=== PATIENT | male | born 1970 | race American Indian/Alaskan Native ===

== ENCOUNTER 2017-05-06 12:07 | Observation (INO) | payer MEDICAID, OTHER ==
[2017-05-06 12:07] VITALS: BMI 24.0
[2017-05-06] MEDS ORDERED: Sodium Chloride 0.9% 1,000 ML IV STA ×2 (12:23→15:50)
[2017-05-06] MEDS ORDERED: Morphine 4 mg/ml ISec IVP STA (12:25)
--- NOTE | 2017-05-06 12:31 | ED PDOC ---
Arrival/HPI - General Chief Complaint: Abdominal Pain Time Seen by Provider: 05/06/17 12:07 Historian: Patient - History of Present Illness Narrative History of Present Illness (Text): 05/06/17 12:31 A 46 year old male, whose past medical history includes gastroenteritis and colitis, presents to the emergency department complaining of abdominal pain that began this morning. Patient reports nausea, vomiting and diarrhea but denies any other complaints at this time. No history of abdominal surgeries. Denies any sick contacts. Time/Duration: 4-6 hours Symptom Onset: Sudden Symptom Course: Unchanged Activities at Onset: Rest Context: Home Past Medical History - Provider Review Nursing Documentation Reviewed: Yes - Infectious Disease Hx of Infectious Diseases: None - Past Medical History Past Medical History: No Previous - Cardiac Hx Cardiac Disorders: No - Pulmonary Hx Respiratory Disorders: No - Neurological Hx Neurological Disorder: No - HEENT Hx HEENT Disorder: No - Renal Hx Renal Disorder: No - Endocrine/Metabolic Hx Endocrine Disorders: No - Hematological/Oncological Hx Blood Disorders: No - Integumentary Hx Dermatological Disorder: No - Musculoskeletal/Rheumatological Hx Musculoskeletal Disorders: No - Gastrointestinal Hx Gastrointestinal Disorders: Yes Hx Colitis: Yes Other/Comment: chronic abd pains - Genitourinary/Gynecological Hx Genitourinary Disorders: No - Psychiatric Hx Psychophysiologic Disorder: No Hx Substance Use: Yes - Past Surgical History Past Surgical History: No Previous - Anesthesia Hx Anesthesia: No Hx Anesthesia Reactions: No Hx Malignant Hyperthermia: No - Suicidal Assessment Feels Threatened In Home Enviroment: No Family/Social History - Physician Review Nursing Documentation Reviewed: Yes Family/Social History: No Known Family HX Smoking Status: Light Smoker < 10 Cigarettes Daily Hx Alcohol Use: No Hx Substance Use: Yes Substance used: marijuana Allergies/Home Meds Allergies/Adverse Reactions: Allergies iodine Allergy (Verified 05/06/17 12:23) ANAPHYLAXIS shellfish derived Allergy (Verified 05/06/17 12:23) ANAPHYLAXIS Home Medications: Home Meds Medication Instructions Recorded Confirmed No Known Home Med 05/06/17 05/06/17 Review of Systems - Physician Review All systems were reviewed & negative as marked: Yes - Review of Systems Respiratory: absent: SOB Gastrointestinal: Abdominal Pain, Diarrhea, Nausea, Vomiting Musculoskeletal: absent: Back Pain Neurological: absent: Headache Physical Exam Vital Signs Reviewed: Yes Vital Signs Temp Pulse Resp BP Pulse Ox 05/06/17 15:08 63 17 120/80 100 08/27/17 12:11 97.6 F 52 L 18 141/80 100 Temperature: Afebrile Blood Pressure: Normal Pulse: Regular Respiratory Rate: Normal Appearance: Positive for: Well-Appearing, Non-Toxic, Comfortable Pain Distress: Mild Mental Status: Positive for: Alert and Oriented X 3 - Systems Exam Head: Present: Atraumatic, Normocephalic Pupils: Present: PERRL Extroacular Muscles: Present: EOMI Conjunctiva: Present: Normal Mouth: Present: Moist Mucous Membranes Neck: Present: Normal Range of Motion Respiratory/Chest: Present: Clear to Auscultation, Good Air Exchange. No: Respiratory Distress, Accessory Muscle Use Cardiovascular: Present: Regular Rate and Rhythm, Normal S1, S2. No: Murmurs Abdomen: Present: Tenderness (diffuse nonfocal), Normal Bowel Sounds. No: Peritoneal Signs Back: Present: Normal Inspection Upper Extremity: Present: Normal Inspection. No: Cyanosis, Edema Lower Extremity: Present: Normal Inspection. No: Edema Neurological: Present: GCS=15, CN II-XII Intact, Speech Normal Skin: Present: Warm, Dry, Normal Color. No: Rashes Psychiatric: Present: Alert, Oriented x 3, Normal Insight, Normal Concentration Medical Decision Making ED Course and Treatment: 05/06/17 12:28 Impression: A 46 year old male with abdominal pain. Plan: -- CT abd/pelvis -- labs -- Urinalysis -- Morphine, IV fluids, Zofran -- Reassess and disposition Prior Visits: Notes and results from previous visits were reviewed. Patient last reported to the emergency department on 07/25/16 for evaluation of abdominal pain and vomiting. Progress Notes: 05/06/17 14:31 CT abdomen and pelvis Creator : Dirk Lott MD IMPRESSION: The appendix not seen with complete certainty however what is felt to represent the appendix right lower quadrant of the abdomen appears slightly dilated on nonspecific. No obvious in surrounding inflammatory changes seen however the possibility of a early acute appendicitis not excluded. There are also a few scattered colonic diverticula seen along the proximal descending and sigmoid colon. Wall thickening of the sigmoid and distal descending colon may in part be due to incomplete distention, peristalsis and adherent under opacified bowel however the possibility of a nonspecific inflammatory process -colitis/ diverticulitis involving this segment of colon cannot be excluded. Clinical correlation recommended. Note made of a small elliptical shaped fluid collection right inguinal canal as described above. Findings discussed with Emergency room physician Dr. Montelongo at approximately 2:22 p.m. with written down and read back verification. - Lab Interpretations Lab Results: 05/06/17 12:35 05/06/17 12:35 Lab Results 05/06/17 12:35: ESR 2 05/06/17 12:35: Sodium 142, Potassium 4.3, Chloride 107, Carbon Dioxide 27, Anion Gap 12, BUN 15, Creatinine 1.1, Est GFR ( Amer) > 60, Est GFR (Non- Af Amer) > 60, Random Glucose 87, Calcium 9.5, Total Bilirubin 0.3, AST 25, ALT 28, Alkaline Phosphatase 71, Total Protein 7.3, Albumin 4.2, Globulin 3.1, Albumin/Globulin Ratio 1.4, Lipase 53 05/06/17 12:35: PT 10.5, INR 0.97, APTT 29.2 05/06/17 12:35: WBC 4.9, RBC 5.19, Hgb 14.4, Hct 43.1, MCV 83.0, MCH 27.7, MCHC 33.4, RDW 14.2, Plt Count 275, MPV 9.0, Gran % 44.0 L, Lymph % (Auto) 45.3 H, [place] % (Auto) 7.6 H, Eos % (Auto) 2.5, Baso % (Auto) 0.6, Gran # 2.14, Lymph # 2.2, [place] # 0.4, Eos # 0.1, Baso # 0.03 I have reviewed the lab results: Yes - RAD Interpretation Radiology Orders: 05/06/17 12:23 ABD & PELVIS W/O PO OR IV CONT [CT] Stat - Medication Orders Current Medication Orders: Metronidazole (Flagyl) 500 mg in 100 mls @ 100 mls/hr IVPB Q8 LATANYA PRN Reason: Protocol Last Admin: 05/06/17 17:22 Dose: 100 mls/hr Ceftriaxone Sodium (Rocephin 1 Gram Ivpb) 1 gm in 100 mls @ 100 mls/hr IVPB DAILY LATANYA PRN Reason: Protocol Sodium Chloride (Sodium Chloride 0.9%) 1,000 mls @ 100 mls/hr IV .Q10H LATANYA Ketorolac Tromethamine (Toradol) 15 mg IVP Q6 PRN PRN Reason: Pain, severe (8-10) Discontinued Medications Sodium Chloride (Sodium Chloride 0.9%) 1,000 mls @ 1,000 mls/hr IV .Q1H STA Stop: 05/06/17 13:22 Last Admin: 05/06/17 12:42 Dose: 1,000 mls/hr Piperacillin Sod/Tazobactam Sod (Zosyn 3.375 In Ns 100ml) 100 mls @ 200 mls/hr IVPB STAT STA PRN Reason: Protocol Stop: 05/06/17 14:50 Last Admin: 05/06/17 15:04 Dose: 200 mls/hr Sodium Chloride (Sodium Chloride 0.9%) 1,000 mls @ 999 mls/hr IV .Q1H1M STA Stop: 05/06/17 16:50 Last Admin: 05/06/17 16:20 Dose: 999 mls/hr Morphine Sulfate (Morphine) 4 mg IVP STAT STA Stop: 05/06/17 12:26 Last Admin: 05/06/17 12:37 Dose: 4 mg Ondansetron HCl (Zofran Inj) 4 mg IVP STAT STA Stop: 05/06/17 12:24 Last Admin: 05/06/17 12:35 Dose: 4 mg - Scribe Statement The provider has reviewed the documentation as recorded by the Cassius Nesbitt Provider Scribe Attestation: All medical record entries made by the Scribnatalia were at my direction and personally dictated by me. I have reviewed the chart and agree that the record accurately reflects my personal performance of the history, physical exam, medical decision making, and the department course for this patient. I have also personally directed, reviewed, and agree with the discharge instructions and disposition. Disposition/Present on Arrival - Present on Arrival Any Indicators Present on Arrival: No History of DVT/PE: No History of Uncontrolled Diabetes: No Urinary Catheter: No History of Decub. Ulcer: No History Surgical Site Infection Following: None - Disposition Have Diagnosis and Disposition been Completed?: Yes Diagnosis: Abdominal pain Disposition: HOSPITALIZED Disposition Time: 02:00 Condition: STABLE
[2017-05-06 12:57] LABS: BASO # 0.03 K/mm3 (0.0-2.0); BASO % 0.6 % (0.0-3.0); EOS # 0.1 (0.0-0.7); EOS % 2.5 % (1.5-5.0); GRAN # 2.14 (1.4-6.5); HEMATOCRIT 43.1 % (42.0-52.0); LYMPH # 2.2 (1.2-3.4); LYMPH % 45.3 % (22.0-35.0); MEAN CORPUSCULAR HEMOGLOBIN 27.7 pg (25.0-35.0); MEAN CORPUSCULAR HGB CONC 33.4 g/dl (31.0-37.0); MONO # 0.4 (0.1-0.6); MONO % 7.6 % (1.0-6.0); RED CELL DISTRIBUTION WIDTH 14.2 % (11.5-14.5); WHITE BLOOD COUNT 4.9 10^3/ul (4.5-11.0)
[2017-05-06 13:07] LABS: INR 0.97 (0.93-1.08); PARTIAL THROMBOPLASTIN TIME 29.2 Seconds (23.7-30.8)
[2017-05-06 13:10] LABS: ALB/GLOB RATIO 1.4 (1.1-1.8); ALKALINE PHOSPHATASE 71 U/L (38-133); ALT/SGPT 28 U/L (7-56); AST/SGOT 25 U/L (15-59); BILIRUBIN,TOTAL 0.3 mg/dL (0.2-1.3); BLOOD UREA NITROGEN 15 mg/dL (7-21); CALCIUM 9.5 mg/dL (8.4-10.5); CARBON DIOXIDE 27 mmol/L (21-33); CHLORIDE 107 mmol/L (98-107); GFR AFRICAN-AMERICAN > 60; GLUCOSE,RANDOM 87 mg/dL (70-110); LIPASE 53 U/L (23-300); POTASSIUM 4.3 mmol/L (3.6-5.0); SODIUM 142 mmol/L (132-148); TOTAL PROTEIN 7.3 g/dL (5.8-8.3)
[2017-05-06] MEDS ORDERED: Piperacillin/Tazobact 3.375 gm 100 ML IVPB STA (14:21)
--- NOTE | 2017-05-06 14:29 | CT ---
PROCEDURE: CT abdomen and pelvis dated 05/06/2017 HISTORY: diffuse abd pain COMPARISON: Comparison made with CT scan abdomen pelvis 07/25/2016. TECHNIQUE: Contiguous axial images of the abdomen and pelvis performed without oral or intravenous contrast iven. Coronal and Sagittal reformats generated. Radiation dose: Total exam DLP = 194.85 mGy-cm. This CT exam was performed using one or more of the following dose reduction techniques: Automated exposure control, adjustment of the mA and/or kV according to patient size, and/or use of iterative reconstruction technique. FINDINGS: LOWER THORAX: Lung bases clear. No infiltrate effusion or basilar pneumothorax. Heart size is within range of normal. No significant pericardial effusion. LIVER: Liver exhibits normal size measuring 14.4 cm in CC dimension. No obvious hepatic mass collection or calcification. GALLBLADDER AND BILE DUCTS: The the gallbladder is physiologically distended. No evidence of intraluminal gallbladder calculi. PANCREAS: The pancreas is poorly delineated predominately due to a paucity of intraperitoneal and retroperitoneal fat and the lack of oral and intravenous contrast material. No gross pancreatic mass collection calcification or significant ductal dilatation. SPLEEN: Unremarkable. No splenomegaly. ADRENALS: There are no adrenal lesions. KIDNEYS AND URETERS: Re- demonstrated is a 2.0 x 1.7 cm cyst anteromedial aspect upper/ midpole left kidney unchanged. BLADDER: Urinary bladder is physiologically distended. No intraluminal urinary bladder calculi. REPRODUCTIVE: Prostate gland measures approximately 3.1 cm in transverse dimension. APPENDIX: The appendix is not seen with complete certainty however what appears to represent the appendix seen on axial image number [id number] is slightly dilated. The possibility of a early mild acute appendicitis must be excluded. Clinical correlation with physical exam. BOWEL: Evaluation of the bowel is limited due to the lack of oral contrast material as well as paucity of intraperitoneal and retroperitoneal fat. Stomach is partially distended with food debris liquid and air. Visualized loops of small bowel exhibit normal contour and caliber. No evidence of acute mechanical small bowel obstruction. Evaluation There is a diverticulum seen along the proximal descending colon and what appear to represent a few scattered colonic diverticula along the sigmoid. On there is mild wall thickening of a short segment of the sigmoid and distal descending colon which may in part be due to incomplete distention peristalsis as well as adherent under opacified bowel however the possibility of a the inflammatory process - colitis/diverticulitis not excluded. Clinical correlation recommended PERITONEUM: . No gross free intraperitoneal air or fluid. Tiny fat containing umbilical hernia Note made of a small approximately elliptical shaped approximately 4 cm cc x 3.3cm t x 2.1 ap cm low-attenuation focus within the right inguinal canal that exhibits Hounsfield units consistent with that of fluid. LYMPH NODES: Unremarkable. No enlarged lymph nodes. VASCULATURE: No evidence of abdominal aortic or iliac artery aneurysm. Minor calcified plaque changes seen along the abdominal aorta and right iliac artery. BONES: Osseous structures appear grossly intact. OTHER FINDINGS: None. IMPRESSION: The appendix not seen with complete certainty however what is felt to represent the appendix right lower quadrant of the abdomen appears slightly dilated on nonspecific. No obvious in surrounding inflammatory changes seen however the possibility of a early acute appendicitis not excluded. There are also a few scattered colonic diverticula seen along the proximal descending and sigmoid colon. Wall thickening of the sigmoid and distal descending colon may in part be due to incomplete distention, peristalsis and adherent under opacified bowel however the possibility of a nonspecific inflammatory process -colitis/diverticulitis involving this segment of colon cannot be excluded. Clinical correlation recommended. Note made of a small elliptical shaped fluid collection right inguinal canal as described above. Findings discussed with . Emergency room physician Dr. Montelongo at approximately 2:22 p.m. with written down and read back verification.
[2017-05-06] MEDS: Sodium Chloride 0.9% 1,000 ML IV SCH (17:15)
[2017-05-06 17:21] VITALS: RESP 20
[2017-05-06] MEDS: metroNIDAZOLE IV 500 mg/100 ml 500 MG/100 ML BAG IVPB SCH ×2 (17:22→21:28)
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
[2017-05-06 17:43] LABS: PH,URINE 7.5 (4.7-8.0); URINE BILIRUBIN NEGATIVE (NEGATIVE); URINE BLOOD TRACE-LYSED (NEGATIVE); URINE GLUCOSE (UA) NEGATIVE (NEGATIVE); URINE KETONE NEGATIVE (NEGATIVE); URINE LEUKOCYTE ESTERASE NEGATIVE Leu/uL (NEGATIVE); URINE PROTEIN NEGATIVE mg/dL (<30 mg/dL); URINE UROBILINOGEN 0.2 E.U./dL (<1 E.U./dL)
[2017-05-06 17:46] LABS: URINE APPEARANCE CLEAR (CLEAR); URINE COLOR LIGHT YELLOW (YELLOW)
[2017-05-06 17:54] LABS: URINE BACTERIA MOD (NEG); URINE EPITHELIAL CELLS 0 - 2 /hpf (0-5); URINE RBC 0 - 2 /hpf (0-2); URINE WBC 0 - 2 /hpf (0-6)
[2017-05-06] MEDS: cefTRIAXone 1 gm 1 GM/100 ML BAG IVPB SCH (19:51)
[2017-05-07] MEDS: Sodium Chloride 0.9% 1,000 ML IV SCH (05:07)
[2017-05-07] MEDS: metroNIDAZOLE IV 500 mg/100 ml 500 MG/100 ML BAG IVPB SCH (05:07)
[2017-05-07 07:22] LABS: HEMATOCRIT 37.5 % (42.0-52.0); MEAN CELL VOLUME 82.6 fl (80.0-105.0); MEAN CORPUSCULAR HEMOGLOBIN 26.7 pg (25.0-35.0); MEAN CORPUSCULAR HGB CONC 32.3 g/dl (31.0-37.0); MEAN PLATELET VOLUME 8.9 fl (7.0-11.0); RED CELL DISTRIBUTION WIDTH 14.2 % (11.5-14.5); WHITE BLOOD COUNT 4.8 10^3/ul (4.5-11.0)
[2017-05-07 07:37] LABS: BLOOD UREA NITROGEN 8 mg/dL (7-21); CALCIUM 8.5 mg/dL (8.4-10.5); CARBON DIOXIDE 24 mmol/L (21-33); CHLORIDE 108 mmol/L (95-110); GFR AFRICAN-AMERICAN > 60; GLUCOSE,RANDOM 79 mg/dL (70-110); SODIUM 140 mmol/L (132-148)
[2017-05-07 08:49] VITALS: BP 119/82; PULSE 51; TEMP 97.9; O2SAT 95
[2017-05-07] MEDS: cefTRIAXone 1 gm 1 GM/100 ML BAG IVPB SCH (10:05)
--- NOTE | 2017-05-07 12:00 | CP.PCM.PN ---
Subjective - Date & Time of Evaluation Date of Evaluation: 05/07/17 Time of Evaluation: 11:57 - Subjective Subjective: General Surgery progress note for Dr. Austin PT S&E at bedside. KURTIS. Patient states he's feeling well. Patient denies abdominal pain, F/C, N/V. Patient resting comfortably in bed. Upon rounds with attending, nursing staff informed that patient has eloped Objective - Vital Signs/Intake and Output Vital Signs (last 24 hours): Temp Pulse Resp BP Pulse Ox 97.9 F 51 L 20 119/82 95 05/07/17 08:48 05/07/17 08:48 05/07/17 08:48 05/07/17 08:48 05/07/17 08:48 Intake and Output: 05/07/17 05/07/17 06:59 18:59 Intake Total 1840 Balance 1840 - Labs Labs: 05/07/17 05:50 05/07/17 05:50 PT 10.5 Seconds (9.9-11.8) 05/06/17 12:35 INR 0.97 (0.93-1.08) 05/06/17 12:35 APTT 29.2 Seconds (23.7-30.8) 05/06/17 12:35 - Constitutional Appears: Non-toxic, No Acute Distress - Head Exam Head Exam: NORMAL INSPECTION - Eye Exam Eye Exam: EOMI, Normal appearance - ENT Exam ENT Exam: Mucous Membranes Moist - Neck Exam Neck Exam: Full ROM, Normal Inspection - Respiratory Exam Respiratory Exam: Clear to Ausculation Bilateral, NORMAL BREATHING PATTERN. absent: Accessory Muscle Use, Respiratory Distress - Cardiovascular Exam Cardiovascular Exam: Bradycardia, REGULAR RHYTHM - GI/Abdominal Exam GI & Abdominal Exam: Soft, Normal Bowel Sounds. absent: Tenderness, Rebound - Extremities Exam Extremities Exam: Full ROM. absent: Calf Tenderness, Pedal Edema - Back Exam Back Exam: Full ROM, NORMAL INSPECTION - Neurological Exam Neurological Exam: Alert, Awake, Normal Gait, Oriented x3 - Psychiatric Exam Psychiatric exam: Normal Affect, Normal Mood - Skin Skin Exam: Dry, Intact, Normal Color, Warm Assessment and Plan - Assessment and Plan (Free Text) Assessment: 46M with abdominal pain with CT showing inflammation of the bowels Plan: patient left the hospital AMA. no surgical intervention at this time
--- NOTE | 2017-05-07 16:21 | CON ---
HISTORY OF PRESENT ILLNESS: I examined the patient this morning. He is a 46-year-old black male with complaint of abdominal pain, which started yesterday associated with nausea, vomiting, and diarrhea. The symptoms usually started after consumption of different food products, which in the past have included alcohol and other solid food items. The patient denies hematemesis or rectal bleeding. The patient had multiple episodes similar to this one easily precipitated by food products. Note that he has not incorporate a food diary in the past. At the bedside this morning, the patient has no symptoms at all. There is no abdominal pain, his diarrhea episode was after the CT scan was done. No fever or chills, and the patient was on advanced diet. PHYSICAL EXAMINATION: VITAL SIGNS: I reviewed this patient's vital signs. HEENT: Noncontributory. LUNGS: Clear to auscultation. HEART: Regular rhythm. ABDOMEN: Soft, in all quadrants. The abdomen is decompressed. Bowel sounds are normal. LABORATORY DATA: I reviewed this patient's laboratory data. The CBC is noncontributory. His INR is within normal limits. Chemistry is also noncontributory. Urine is noncontributory but is positive for urine opiates as well as cannabinoids. Note that I reviewed the CT images as well as the CT report. ASSESSMENT: He is a 46-year-old black male with complaints of probable gastroenteritis type symptoms secondary to food products. He is advised to initiate a food dairy and he is well aware that consumption of certain foods will produce symptoms similar to that which prompted the current admission. He may possibly go home. Advanced diet. Consider possibly sending this patient home today. Luis Angel Zee DO, PhD MARRY
--- NOTE | 2017-05-07 20:52 | CP.PCM.PN ---
<Prateek Sauer - Last Filed: 05/07/17 20:47> Subjective - Date & Time of Evaluation Date of Evaluation: 05/07/17 Time of Evaluation: 08:30 - Subjective Subjective: This is a 44 yr. old male with no pertinent past medical history who comes with periumbilical pain in association with 3 episodes of watery diarrhea for two days. During the initial the assessment the patient was resting comfortably in no acute distress. He reported feeling better and wanted to go home. The patient denies any chest pain, shortness of breath, nausea, vomiting, abdominal pain, lightheadedness, dizziness or any other complaints. An hour later the patient was seen again after the nurse alerted me he was ready to leave. After speaking with the patient he agreed to give us thirty minutes to see him, however he eloped soon after I left the room. Objective - Vital Signs/Intake and Output Vital Signs (last 24 hours): Temp Pulse Resp BP Pulse Ox 97.9 F 51 L 20 119/82 95 05/07/17 08:48 05/07/17 08:48 05/07/17 08:48 05/07/17 08:48 05/07/17 08:48 Intake and Output: 05/07/17 05/08/17 18:59 06:59 Intake Total 600 Balance 600 - Labs Labs: 05/07/17 05:50 05/07/17 05:50 PT 10.5 Seconds (9.9-11.8) 05/06/17 12:35 INR 0.97 (0.93-1.08) 05/06/17 12:35 APTT 29.2 Seconds (23.7-30.8) 05/06/17 12:35 - Constitutional Appears: Well, Non-toxic, No Acute Distress - Head Exam Head Exam: ATRAUMATIC, NORMAL INSPECTION, NORMOCEPHALIC - Eye Exam Eye Exam: EOMI, Normal appearance, PERRL. absent: Periorbital tenderness Pupil Exam: NORMAL ACCOMODATION, PERRL. absent: Irregular, Unequal - ENT Exam ENT Exam: Mucous Membranes Moist, Normal Exam. absent: Normal Oropharynx - Neck Exam Neck Exam: Full ROM - Respiratory Exam Respiratory Exam: Clear to Ausculation Bilateral, NORMAL BREATHING PATTERN. absent: Wheezes, Respiratory Distress - Cardiovascular Exam Cardiovascular Exam: REGULAR RHYTHM, +S1, +S2. absent: JVD, RRR - GI/Abdominal Exam GI & Abdominal Exam: Soft, Normal Bowel Sounds. absent: Firm, Guarding, Tenderness - Extremities Exam Extremities Exam: Full ROM, Normal Inspection - Back Exam Back Exam: NORMAL INSPECTION. absent: paraspinal tenderness - Neurological Exam Neurological Exam: Alert, Awake, CN II-XII Intact - Psychiatric Exam Psychiatric exam: Normal Affect, Normal Mood - Skin Skin Exam: Dry, Normal Color. absent: Petechiae, Rash, Urticaria Assessment and Plan - Assessment and Plan (Free Text) Assessment: Early appendicitis vs. colitis vs. diverticulitis Plan: Patient eloped. No further treatment administered. <Norman HORNER,Lesly - Last Filed: 05/12/17 11:21> Objective - Vital Signs/Intake and Output Vital Signs (last 24 hours): Temp Pulse Resp BP Pulse Ox 97.9 F 51 L 20 119/82 95 05/07/17 08:48 05/07/17 08:48 05/07/17 08:48 05/07/17 08:48 05/07/17 08:48 - Labs Labs: 05/07/17 05:50 05/07/17 05:50 PT 10.5 Seconds (9.9-11.8) 05/06/17 12:35 INR 0.97 (0.93-1.08) 05/06/17 12:35 APTT 29.2 Seconds (23.7-30.8) 05/06/17 12:35 Attending/Attestation - Attestation I have personally seen and examined this patient.: Yes I have fully participated in the care of the patient.: Yes I have reviewed all pertinent clinical information, including history, physical exam and plan: Yes Notes (Text): 05/12/17 11:21 46 year old male with past medical history of chronic abdominal pain who presents with lower abdominal pain. CT abd/pelvis shows sigmoid diverticuli (cannot exclude diverticulitis/colitis) and dilated appendix . Patient left hospital with out leeting any one know.
--- NOTE | 2017-05-07 21:50 | CARD ---
APPROVED REPORT EKG Measurement Heart [id number] DC [id number] <Conclusion> Sinus bradycardia Otherwise normal ECG
--- NOTE | 2017-05-07 21:53 | CARD ---
APPROVED REPORT EKG Measurement Heart [id number] ND [id number] <Conclusion> Marked sinus bradycardia Abnormal ECG
== END 2017-05-07 11:19 | disposition left against medical advice (07) ==
LOC: ED 12:07 → ERH 14:29 → 5RNO 15:26
PROVIDERS: ADMIT Hospitalist; ATTEND Hospitalist
DX: R10.33 Periumbilical pain (principal); K57.30 Diverticulosis of large intestine without perforation or abscess without bleeding; R00.1 Bradycardia, unspecified; R11.2 Nausea with vomiting, unspecified; F12.90 Cannabis use, unspecified, uncomplicated
CPT/HCPCS: 36415; 74176; 80048; 80053; 81001; 83690; 85025; 85027; 85610; 85651; 85730; 93005; 96361; 96365; 96366; 96367; 96375; 99284; G0378; G0480; J0696; J2270; J2405; J2543; J7040

== ENCOUNTER 2017-07-24 09:36 | Emergency (ER) | payer MEDICAID ==
[2017-07-24 09:37] VITALS: BMI 24.0
[2017-07-24 09:47] VITALS: TEMP 97.9; O2SAT 99
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
[2017-07-24] MEDS ORDERED: Sodium Chloride 0.9% 1,000 ML IV STA (10:19)
[2017-07-24 10:50] LABS: VENOUS BLOOD GAS BASE EXCESS 1.2 mmol/L (0.0-2.0); VENOUS BLOOD PH 7.41 (7.32-7.43)
[2017-07-24 10:55] LABS: BASO # 0.03 K/mm3 (0.0-2.0); BASO % 0.6 % (0.0-3.0); EOS # 0.1 (0.0-0.7); GRAN # 2.06 (1.4-6.5); GRAN % 41.7 % (50.0-68.0); HEMATOCRIT 43.2 % (42.0-52.0); LYMPH # 2.5 (1.2-3.4); LYMPH % 50.4 % (22.0-35.0); MEAN CELL VOLUME 82.9 fl (80.0-105.0); MEAN CORPUSCULAR HGB CONC 33.8 g/dl (31.0-37.0); MEAN PLATELET VOLUME 8.9 fl (7.0-11.0); MONO # 0.3 (0.1-0.6); MONO % 5.3 % (1.0-6.0); RED CELL DISTRIBUTION WIDTH 13.9 % (11.5-14.5); WHITE BLOOD COUNT 4.9 10^3/ul (4.5-11.0)
[2017-07-24 11:00] LABS: ALB/GLOB RATIO 1.4 (1.1-1.8); ALKALINE PHOSPHATASE 68 U/L (38-126); ALT/SGPT 39 U/L (7-56); AST/SGOT 24 U/L (17-59); BILIRUBIN,TOTAL 0.5 mg/dL (0.2-1.3); BLOOD UREA NITROGEN 16 mg/dL (7-21); CALCIUM 9.5 mg/dL (8.4-10.5); CARBON DIOXIDE 25 mmol/L (21-33); CHLORIDE 107 mmol/L (98-107); GFR AFRICAN-AMERICAN > 60; GLUCOSE,RANDOM 97 mg/dL (70-110); POTASSIUM 4.2 mmol/L (3.6-5.0); SODIUM 140 mmol/L (132-148); TOTAL PROTEIN 7.4 g/dL (5.8-8.3)
[2017-07-24 12:03] VITALS: RESP 18
--- NOTE | 2017-07-24 13:19 | RAD ---
HISTORY: abdominal pain COMPARISON: No prior. FINDINGS: BOWEL: Normal. No obstruction. No free air. BONES: Normal. OTHER FINDINGS: None. IMPRESSION: No active disease.
[2017-07-24 14:00] VITALS: BP 156/86; PULSE 66
[2017-07-24 14:29] LABS: VENOUS BLOOD GAS BASE EXCESS -1.2 mmol/L (0.0-2.0); VENOUS BLOOD PH 7.39 (7.32-7.43)
== END 2017-07-24 14:45 | disposition home or self-care (01) ==
LOC: ED 09:36
DX: K52.9 Noninfective gastroenteritis and colitis, unspecified (principal); F17.210 Nicotine dependence, cigarettes, uncomplicated
CPT/HCPCS: 74020; 80053; 80324; 80345; 80346; 80349; 80353; 80358; 80361; 82803; 83690; 83992; 85025; 87040; 96374; 96375; 96376; 99283; J1885; J2405; J7040

== ENCOUNTER 2018-02-18 10:12 | Emergency (ER) | payer MEDICAID ==
[2018-02-18 10:13] VITALS: BMI 24.0
[2018-02-18 10:21] VITALS: TEMP 98.3
[2018-02-18] MEDS ORDERED: Morphine 4 mg/ml ISec IVP STA (10:41)
[2018-02-18] MEDS ORDERED: Atrop/Hyosc/Scopal/PB Elixir (120 ml) PO STA (10:41)
[2018-02-18] MEDS ORDERED: Sodium Chloride 0.9% 1,000 ML IV STA (10:41)
[2018-02-18] MEDS ORDERED: Alum-Mag Hydrox-Simethicone Susp (30 mL) PO STA (10:41)
[2018-02-18] MEDS ORDERED: Sodium Chloride 0.9% 500 ML IV STA (10:45)
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
[2018-02-18 11:40] LABS: BASO # 0.04 K/mm3 (0.0-2.0); BASO % 0.6 % (0.0-3.0); EOS # 0.2 (0.0-0.7); EOS % 2.5 % (1.5-5.0); GRAN # 4.27 (1.4-6.5); GRAN % 66.6 % (50.0-68.0); HEMOGLOBIN 14.1 g/dL (14.0-18.0); LYMPH # 1.6 (1.2-3.4); LYMPH % 25.5 % (22.0-35.0); MEAN CELL VOLUME 81.6 fl (80.0-105.0); MEAN CORPUSCULAR HEMOGLOBIN 27.4 pg (25.0-35.0); MEAN CORPUSCULAR HGB CONC 33.6 g/dl (31.0-37.0); MEAN PLATELET VOLUME 8.7 fl (7.0-11.0); MONO # 0.3 (0.1-0.6); MONO % 4.8 % (1.0-6.0); RBC 5.15 10^6/uL (3.5-6.1); RED CELL DISTRIBUTION WIDTH 13.9 % (11.5-14.5); WHITE BLOOD COUNT 6.4 10^3/ul (4.5-11.0)
[2018-02-18 11:48] LABS: VENOUS BLOOD GAS BASE EXCESS 2.6 mmol/L (0.0-2.0); VENOUS BLOOD GAS PO2 21 mm/Hg (30-55); VENOUS BLOOD PH 7.43 (7.32-7.43)
[2018-02-18 12:03] LABS: INR 1.02 (0.93-1.08); PARTIAL THROMBOPLASTIN TIME 33.6 Seconds (25.1-36.5); PROTHROMBIN TIME 11.7 SECONDS (9.4-12.5)
--- NOTE | 2018-02-18 13:01 | CT ---
PROCEDURE: CT Abdomen and Pelvis without intravenous contrast HISTORY: mid abd pain COMPARISON: 05/06/2017 TECHNIQUE: Without contrast. Contrast dose: Radiation dose: Total exam DLP = 194 mGy-cm. This CT exam was performed using one or more of the following dose reduction techniques: Automated exposure control, adjustment of the mA and/or kV according to patient size, and/or use of iterative reconstruction technique. FINDINGS: LOWER THORAX: Unremarkable. LIVER: Unremarkable. No gross lesion or ductal dilatation. GALLBLADDER AND BILE DUCTS: Unremarkable. PANCREAS: Unremarkable. No gross lesion or ductal dilatation. SPLEEN: Unremarkable. ADRENALS: Unremarkable. No mass. KIDNEYS AND URETERS: Unremarkable. No hydronephrosis. No solid mass. VASCULATURE: Unremarkable. No aortic aneurysm. BOWEL: Unremarkable. No obstruction. No gross mural thickening. There is mild diverticulosis throughout the colon. There is very little abdominal fat making it difficult to rule out inflammatory changes. There is also no oral or IV contrast APPENDIX: Unremarkable. Normal appendix. PERITONEUM: Unremarkable. No free fluid. No free air. LYMPH NODES: Unremarkable. No enlarged lymph nodes. BLADDER: Unremarkable. REPRODUCTIVE: Unremarkable. BONES: No acute fracture. OTHER FINDINGS: None. IMPRESSION: Study limited by lack of abdominal fat and absence of IV or oral contrast. No acute intra-abdominal findings.
[2018-02-18 13:16] LABS: PH,URINE 8.5 (4.7-8.0); URINE BILIRUBIN NEGATIVE (NEGATIVE); URINE BLOOD NEGATIVE (NEGATIVE); URINE GLUCOSE (UA) NEGATIVE (NEGATIVE); URINE LEUKOCYTE ESTERASE NEGATIVE Leu/uL (NEGATIVE); URINE PROTEIN NEGATIVE mg/dL (<30 mg/dL); URINE UROBILINOGEN 0.2 E.U./dL (<1 E.U./dL)
[2018-02-18 13:17] LABS: URINE APPEARANCE CLEAR (CLEAR); URINE COLOR YELLOW (YELLOW)
[2018-02-18 13:20] LABS: ALB/GLOB RATIO 1.4 (1.1-1.8); ALBUMIN 3.9 g/dL (3.0-4.8); ALT/SGPT 28 U/L (7-56); AST/SGOT 22 U/L (17-59); BLOOD UREA NITROGEN 12 mg/dL (7-21); CALCIUM 8.2 mg/dL (8.4-10.5); GFR AFRICAN-AMERICAN > 60; GFR NON-AFRICAN AMERICAN > 60; LIPASE 61 U/L (23-300)
[2018-02-18 14:10] VITALS: BP 145/82; PULSE 70; RESP 16; O2SAT 100
== END 2018-02-18 14:40 | disposition home or self-care (01) ==
LOC: ED 10:12
DX: K29.70 Gastritis, unspecified, without bleeding (principal); R11.2 Nausea with vomiting, unspecified; F17.210 Nicotine dependence, cigarettes, uncomplicated
CPT/HCPCS: 74176; 80053; 81003; 82803; 83690; 83735; 83930; 85025; 85610; 85730; 96374; 96375; 99285; J2270; J2405; J2765; J7030; J7040

== ENCOUNTER 2018-02-21 09:57 | Emergency (ER) | payer MEDICAID ==
[2018-02-21 10:41] VITALS: BMI 24.4
== END 2018-02-21 12:34 | disposition left against medical advice (07) ==
LOC: ED 09:57
DX: Z02.89 Encounter for other administrative examinations (principal); R10.9 Unspecified abdominal pain

== ENCOUNTER 2018-03-31 09:21 | Emergency (ER) | payer MEDICAID ==
[2018-03-31 09:22] VITALS: BMI 24.4
[2018-03-31 09:31] VITALS: RESP 18
[2018-03-31] MEDS ORDERED: Atrop/Hyosc/Scopal/PB Elixir (120 ml) PO STA (10:03)
[2018-03-31] MEDS ORDERED: Sodium Chloride 0.9% 1,000 ML IV STA ×2 (10:03→10:05)
[2018-03-31] MEDS ORDERED: Alum-Mag Hydrox-Simethicone Susp (30 mL) PO STA (10:03)
--- NOTE | 2018-03-31 10:12 | ED PDOC ---
Arrival/HPI - General Historian: Patient, Spouse <Megan Doyle - Last Filed: 03/31/18 15:50> <JenelleDonald - Last Filed: 03/31/18 17:54> - General Chief Complaint: Abdominal Pain Time Seen by Provider: 03/31/18 09:24 - History of Present Illness Narrative History of Present Illness (Text): 47 year old male with past medical history of gastritis and GERD presents with crampy epigastric pain and RUQ pain that radiates to his shoulder. He reports that last night he ate some hamburgers and cheeseburgers and smoked marijuana. Today, at 8 AM, he reports 3 episodes of nonbloody vomitus, 3 episodes of nonbloody diarrhea, chills, and abdominal pain. He also reports shortness of breath that he attributes to the abdominal pain. Patient denies dizziness, headache, chest pain, heart palpitations, cough, constipation, dysuria, hematuria, numbness/tingling, and swelling. Patient reports seeing a lining layer twice but does not remember his name. Patient smokes marijuana regularly. (Megan Doyle) Past Medical History - Provider Review Nursing Documentation Reviewed: Yes - Past History Past History: No Previous - Infectious Disease Hx of Infectious Diseases: None - Past Medical History Past Medical History: No Previous - Cardiac Hx Cardiac Disorders: No - Pulmonary Hx Respiratory Disorders: No - Neurological Hx Neurological Disorder: No - HEENT Hx HEENT Disorder: No - Renal Hx Renal Disorder: No - Endocrine/Metabolic Hx Endocrine Disorders: No - Hematological/Oncological Hx Blood Disorders: No - Integumentary Hx Dermatological Disorder: No - Musculoskeletal/Rheumatological Hx Musculoskeletal Disorders: No - Gastrointestinal Hx Gastrointestinal Disorders: Yes Hx Crohn's Disease: Yes - Genitourinary/Gynecological Hx Genitourinary Disorders: No - Psychiatric Hx Psychophysiologic Disorder: No Hx Substance Use: Yes (Marijuana) - Past Surgical History Past Surgical History: No Previous - Surgical History Hx Coronary Stent: No - Anesthesia Hx Anesthesia: Yes - Suicidal Assessment Feels Threatened In Home Enviroment: No <Megan Doyle - Last Filed: 03/31/18 15:50> Family/Social History - Physician Review Nursing Documentation Reviewed: Yes Family/Social History: Other (reports colon polyps in sisters) Smoking Status: Heavy Smoker > 10 Cigarettes Daily Hx Alcohol Use: Yes Hx Substance Use: Yes (Marijuana) Substance used: MARIJUANA Hx Substance Use Treatment: No <RicashelleyArmando fisherreneacarmen - Last Filed: 03/31/18 15:50> Allergies/Home Meds <Armando Doylereneacarmen - Last Filed: 03/31/18 15:50> <Donald Almanzar - Last Filed: 03/31/18 17:54> Allergies/Adverse Reactions: Allergies iodine Allergy (Verified 03/31/18 09:32) ANAPHYLAXIS shellfish derived Allergy (Verified 03/31/18 09:32) ANAPHYLAXIS Review of Systems - Physician Review All systems were reviewed & negative as marked: Yes - Review of Systems Constitutional: Other (chills) Eyes: Normal Respiratory: SOB (from abdominal pain) Cardiovascular: Normal. absent: Chest Pain, Palpitations Gastrointestinal: Abdominal Pain (crampy epigastric and RUQ pain), Diarrhea, Nausea, Vomiting. absent: Constipation Musculoskeletal: Back Pain (closer to the scapula) Skin: Normal Neurological: Normal <Armando Doylereneacarmen - Last Filed: 03/31/18 15:50> Physical Exam Vital Signs Reviewed: Yes Temperature: Afebrile Blood Pressure: Hypertensive Pulse: Bradycardic Respiratory Rate: Normal Appearance: Positive for: Ill-Appearing Pain Distress: Severe Mental Status: Positive for: Alert and Oriented X 3 - Systems Exam Head: Present: Atraumatic, Normocephalic Pupils: Present: PERRL Extroacular Muscles: Present: EOMI Nose (External): Present: Atraumatic Respiratory/Chest: Present: Clear to Auscultation Cardiovascular: Present: Regular Rate and Rhythm Abdomen: Present: Tenderness (severe epigastric and RUQ tenderness). No: Distention, Normal Bowel Sounds (decreased bowel sounds), Rebound, Guarding, McBurney's Point Tender, Rovsing's Sign Present, Mass/Organomegaly Upper Extremity: Present: Normal Inspection, Normal ROM, NORMAL PULSES Lower Extremity: Present: Normal Inspection, NORMAL PULSES, Normal ROM Neurological: Present: GCS=15, CN II-XII Intact, Speech Normal Skin: Present: Warm, Dry, Normal Color Psychiatric: Present: Alert, Oriented x 3, Normal Insight, Normal Concentration <RicashelleynataliaArmandomena - Last Filed: 03/31/18 15:50> <Junior Almanzaro L - Last Filed: 03/31/18 17:54> Vital Signs Temp Pulse Resp BP Pulse Ox 03/31/18 14:12 98.6 F 70 18 144/78 100 03/31/18 13:00 61 18 140/79 98 03/31/18 11:22 98.2 F 60 18 138/79 98 03/31/18 09:30 98.0 F 54 L 18 149/105 H 100 Medical Decision Making - Lab Interpretations I have reviewed the lab results: Yes <Megan Doyle - Last Filed: 03/31/18 15:50> <JenelleDonald L - Last Filed: 03/31/18 17:54> ED Course and Treatment: Impression: 47 year old male with past medical history of gastritis and GERD presents with crampy epigastric pain and RUQ pain that radiates to his shoulder. Assessment: opiate withdrawal vs. gastritis vs. colitis vs. cholecystitis vs. pancreatitis Plan: IV NS 0.9% 2L for rehydration. Patient has been here previously for similar symptoms one month ago. Patient has had CT and obstructive X ray series done which were both unremarkable in the past. As a result, imaging is not warranted on this visit. CBC, CMP, and magnesium to rule out anemia and electrolyte abnormalities from vomiting. Famotidine for relief from possible gastritis. Ondasetron to relieve nausea. Aluminum hydroxide, atropine/hyoscyamine, lidocaine as a GI cocktail for patients symptoms. Lipase to rule out pancreatitis. NPO due to vomitus and for possible imaging. VBG to monitor lactate level and oxygenation. 03/31/18 10:29 Patient reportedly put fingers down his throat and vomited the GI cocktail. 03/31/18 10:53 Patient's status reevaluated. Patient still is in severe abdominal distress and feels nauseous. Morphine 4 mg IV will be started for pain and possible opiate withdrawal. 03/31/18 12:27 UDS was ordered to evaluate for drug abuse. UDS was negative for all drugs except marijuana. 03/31/18 15:52 Patient was given reglan which improved his symptoms. Patient was discharged, told not to exert himself, and that the patient's GI symptoms would improve over the next few days. (Megan Doyle) 03/31/18 12:42 47 year old male presents to the Emergency department for evaluation of epigastric and right upper quadrant pain. In agreement with resident note, which includes further HPI details. Patient was seen and evaluated with resident, came up with plan and treatment together. 03/31/18 14:12 On reevaluation, patient had much improvement. He was tolerating PO fluids. He still had mild epigastric discomfort but pain with improvement. No abdominal tenderness or distension. He was given Rx Zantac, Zofran and Maalox. I advised him that he must keep well hydrated and take medications as prescribed. I advised him to make sure he follows up with PMD and with his GI doctor. He will find out the doctors name but he has it at home. (Donald Almanzar) - Lab Interpretations Lab Results: 03/31/18 09:20 03/31/18 09:20 Lab Results 03/31/18 11:30: Urine Opiates Screen Negative, Urine Methadone Screen Negative, Ur Barbiturates Screen Negative, Ur Phencyclidine Scrn Negative, Ur Amphetamines Screen Negative, U Benzodiazepines Scrn Negative, U Oth Cocaine Metabols Negative, U Cannabinoids Screen Positive H 03/31/18 10:00: pO2 127 H, VBG pH 7.37, VBG pCO2 41.0, VBG HCO3 23.7, VBG Total CO2 25.0, VBG O2 Sat (Calc) 99.0 H, VBG Base Excess -1.5 L, VBG Potassium 3.8, Glucose 100, Lactate 1.4, FiO2 21.0, Sodium 139.0, Chloride 110.0 H, Venous Blood Potassium 3.8 03/31/18 09:20: Sodium 141, Potassium 4.2, Chloride 106, Carbon Dioxide 25, Anion Gap 15, BUN 16, Creatinine 1.0, Est GFR ( Amer) > 60, Est GFR (Non- Af Amer) > 60, Random Glucose 93, Calcium 9.5, Magnesium 1.8, Total Bilirubin 0.4, AST 21, ALT 22, Alkaline Phosphatase 62, Total Protein 7.3, Albumin 4.4, Globulin 2.9, Albumin/Globulin Ratio 1.5, Lipase 33 03/31/18 09:20: WBC 3.9 L D, RBC 5.25, Hgb 14.5, Hct 42.2, MCV 80.4, MCH 27.6, MCHC 34.4, RDW 13.9, Plt Count 259, MPV 8.8, Gran % 29.5 L, Lymph % (Auto) 61.5 H, [place] % (Auto) 4.6, Eos % (Auto) 3.6, Baso % (Auto) 0.8, Gran # 1.16 L, Lymph # (Auto) 2.4, [place] # (Auto) 0.2, Eos # (Auto) 0.1, Baso # (Auto) 0.03 - Medication Orders Current Medication Orders: Discontinued Medications Al Hydrox/Mg Hydrox/Simethicone (Maalox Plus 30 Ml) 30 ml PO STAT STA Stop: 03/31/18 10:04 Last Admin: 03/31/18 10:16 Dose: 30 ml Belladonna/Phenobarbital ( Elixir) 10 ml PO STAT STA Stop: 03/31/18 10:04 Last Admin: 03/31/18 10:19 Dose: 10 ml Famotidine (Pepcid) 20 mg IVP STAT STA Stop: 03/31/18 10:04 Last Admin: 03/31/18 10:16 Dose: 20 mg IVP Administration Document 03/31/18 10:16 GERALDINE (Rec: 03/31/18 10:17 GERALDINE [id number]-[email or web address]) Charges for Administration # of IVP Administrations 1 Sodium Chloride (Sodium Chloride 0.9%) 1,000 mls @ 1,000 mls/hr IV .Q1H STA Stop: 03/31/18 11:02 Last Admin: 03/31/18 10:17 Dose: 1,000 mls/hr eMAR Start Stop Document 03/31/18 10:17 JRA (Rec: 03/31/18 10:17 GERALDINE MORALEZ-PC) Intravenous Solution Start Date 03/31/18 Start Time 10:17 Sodium Chloride (Sodium Chloride 0.9%) 1,000 mls @ 999 mls/hr IV .Q1H1M STA Stop: 03/31/18 11:05 Last Admin: 03/31/18 11:35 Dose: 999 mls/hr eMAR Start Stop Document 03/31/18 11:35 GMD (Rec: 03/31/18 11:35 GMD [id number]) Intravenous Solution Start Date 03/31/18 Start Time 11:35 End Date 03/31/18 End time 12:36 Total Infusion Time 61 Lidocaine HCl (Lidocaine 2% Viscous) 10 ml MM STAT STA Stop: 03/31/18 10:04 Last Admin: 03/31/18 10:17 Dose: 10 ml Metoclopramide HCl (Reglan) 10 mg IVP STAT STA Stop: 03/31/18 13:31 Last Admin: 03/31/18 13:56 Dose: 10 mg IVP Administration Document 03/31/18 13:56 EWO (Rec: 03/31/18 13:56 EWO [id number]) Charges for Administration # of IVP Administrations 1 Morphine Sulfate (Morphine) 4 mg IVP STAT STA Stop: 03/31/18 10:53 Last Admin: 03/31/18 11:35 Dose: 4 mg MAR Pain Assessment Document 03/31/18 11:35 GMD (Rec: 03/31/18 11:35 GMD [id number]) Pain Reassessment Is this a pain reassessment? No IVP Administration Document 03/31/18 11:35 GMD (Rec: 03/31/18 11:35 GMD [id number]) Charges for Administration # of IVP Administrations 1 Ondansetron HCl (Zofran Inj) 4 mg IVP STAT STA Stop: 03/31/18 10:04 Last Admin: 03/31/18 10:08 Dose: Not Given Non-Admin Reason: Agitation IVP Administration Document 03/31/18 10:08 GERALDIEN (Rec: 03/31/18 10:08 JRA [id number]) Charges for Administration # of IVP Administrations 0 - PA / TURBINE MECHANIC / Resident Statement / has reviewed & agrees with the documentation as recorded. / has examined the patient and agrees with the treatment plan. <Megan Doyle - Last Filed: 03/31/18 15:50> - PA / TURBINE MECHANIC / Resident Statement / has reviewed & agrees with the documentation as recorded. / has examined the patient and agrees with the treatment plan. - Scribe Statement The provider has reviewed the documentation as recorded by the Scribe <Donald Almanzar - Last Filed: 03/31/18 17:54> - Scribe Statement Ibeth Sheehan. All medical record entries made by the Scribe were at my direction and personally dictated by me. I have reviewed the chart and agree that the record accurately reflects my personal performance of the history, physical exam, medical decision making, and the department course for this patient. I have also personally directed, reviewed, and agree with the discharge instructions and disposition. (Donald Almanzar) Disposition/Present on Arrival - Present on Arrival Any Indicators Present on Arrival: No History of DVT/PE: No History of Uncontrolled Diabetes: No Urinary Catheter: No History of Decub. Ulcer: No History Surgical Site Infection Following: None - Disposition Have Diagnosis and Disposition been Completed?: Yes Disposition Time: 10:31 Patient Plan: Discharge <Megan Doyle - Last Filed: 03/31/18 15:50> <Donald Almanzar - Last Filed: 03/31/18 17:54> - Disposition Diagnosis: Abdominal pain, Nausea vomiting and diarrhea Disposition: HOME/ ROUTINE Condition: IMPROVED Discharge Instructions (ExitCare): Acute Abdomen (Belly Pain), Adult (DC), Nausea and Vomiting, Adult Additional Instructions: GUILLAUME CHAPMAN, thank you for letting us take care of you today. Your provider was Donald Almanzar DO and you were treated for Abdominal Pain, Nausea, Vomiting. The emergency medical care you received today was directed at your acute symptoms. If you were prescribed any medication, please fill it and take as directed. It may take several days for your symptoms to resolve. Return to the Emergency Department if your symptoms worsen, do not improve, or if you have any other problems. Please contact your doctor or call one of the physicians/clinics you have been referred to that are listed on the Patient Visit Information form that is included in your discharge packet. Bring any paperwork you were given at discharge with you along with any medications you are taking to your follow up visit. Our treatment cannot replace ongoing medical care by a primary care provider outside of the emergency department. Thank you for allowing the [facility] team to be part of your care today. If you had an X-Ray or CT scan: A Radiologist will review the ED reading if any change in treatment is needed we will contact you. If you had a blood, urine, or wound culture: It will take several days for the results, if any change in treatment is needed we will contact you. If you had an STI test: It will take 48 hours for the results. Please call after 1 week if you have not heard back. Prescriptions: Aluminum Hydroxide/Magnesium H [Maalox 30 ml] 30 ml PO Q8 #1 bottle Ondansetron ODT [Zofran ODT] 4 mg PO Q6 #14 odt Ranitidine HCl [Zantac] 150 mg PO BID PRN #30 tablet PRN Reason: Pain, Mild (1-3) Referrals: [facility] [place] [facility] [place] - Follow up with primary Forms: [facility] ([place]), WORK NOTE
[2018-03-31 10:19] LABS: VENOUS BLOOD GAS BASE EXCESS -1.5 mmol/L (0.0-2.0); VENOUS BLOOD GAS PO2 127 mm/Hg (30-55); VENOUS BLOOD PH 7.37 (7.32-7.43)
[2018-03-31 10:24] LABS: ALB/GLOB RATIO 1.5 (1.1-1.8); ALBUMIN 4.4 g/dL (3.0-4.8); ALT/SGPT 22 U/L (7-56); AST/SGOT 21 U/L (17-59); BLOOD UREA NITROGEN 16 mg/dL (7-21); CALCIUM 9.5 mg/dL (8.4-10.5); GFR AFRICAN-AMERICAN > 60; GFR NON-AFRICAN AMERICAN > 60; LIPASE 33 U/L (23-300)
[2018-03-31 10:46] LABS: BASO # 0.03 K/mm3 (0.0-2.0); BASO % 0.8 % (0.0-3.0); EOS # 0.1 (0.0-0.7); EOS % 3.6 % (1.5-5.0); GRAN # 1.16 (1.4-6.5); GRAN % 29.5 % (50.0-68.0); HEMOGLOBIN 14.5 g/dL (14.0-18.0); LYMPH # 2.4 (1.2-3.4); LYMPH % 61.5 % (22.0-35.0); MEAN CELL VOLUME 80.4 fl (80.0-105.0); MEAN CORPUSCULAR HEMOGLOBIN 27.6 pg (25.0-35.0); MEAN CORPUSCULAR HGB CONC 34.4 g/dl (31.0-37.0); MEAN PLATELET VOLUME 8.8 fl (7.0-11.0); MONO # 0.2 (0.1-0.6); MONO % 4.6 % (1.0-6.0); RBC 5.25 10^6/uL (3.5-6.1); RED CELL DISTRIBUTION WIDTH 13.9 % (11.5-14.5); WHITE BLOOD COUNT 3.9 10^3/ul (4.5-11.0)
[2018-03-31] MEDS ORDERED: Morphine 4 mg/ml ISec IVP STA (10:52)
[2018-03-31 12:19] LABS: BARBITURATES, UR NEGATIVE (NEGATIVE); BENZODIAZEPINES, UR NEGATIVE (NEGATIVE); OPIATES, UR NEGATIVE (NEGATIVE); PHENCYCLIDINE, UR NEGATIVE (NEGATIVE)
[2018-03-31 14:13] VITALS: BP 144/78; PULSE 70; TEMP 98.6; O2SAT 100
== END 2018-03-31 14:12 | disposition home or self-care (01) ==
LOC: ED 09:21
DX: R10.11 Right upper quadrant pain (principal); R11.2 Nausea with vomiting, unspecified; R19.7 Diarrhea, unspecified; F17.210 Nicotine dependence, cigarettes, uncomplicated
CPT/HCPCS: 80053; 80324; 80345; 80346; 80349; 80353; 80358; 80361; 82803; 83690; 83735; 83992; 85025; 96361; 96374; 96375; 99285; J2270; J2405; J2765; J7030

== ENCOUNTER 2018-05-10 11:38 | Emergency (ER) | payer MEDICAID, OTHER ==
--- NOTE | 2018-05-10 11:48 | ED PDOC ---
Arrival/HPI - General Time Seen by Provider: 05/10/18 11:45 Historian: Patient - History of Present Illness Narrative History of Present Illness (Text): 05/10/18 12:05 A 47 year old male, whose past medical history includes gastritis, GERD, and substance abuse(marijuana), presents to the emergency department complaining of abdominal pain and nausea starting this morning. Notes also experiencing 2 episodes of vomiting and diarrhea. Per , patient symptoms are related to his gastritis, and states when "he eats or drinks the wrong things, he gets the same symptoms." Patient had seen PMD in the past for similar symptoms. Patient has no other complaints at this time. Also, it is mentioned patient smokes marijuana daily, and last time was this morning and on the way here to the ER in the [facility]. notes also patient has had many CT imagings performed on the abdomen in the past and each one had similar results. PMD had recommended to patient he should not have anymore CT's performed. Last one was taken 1-2 months ago. Time/Duration: Other (symptoms began this morning.) Symptom Onset: Sudden, Gradual Symptom Course: Unchanged Past Medical History - Provider Review Nursing Documentation Reviewed: Yes - Past History Past History: No Previous - Infectious Disease Hx of Infectious Diseases: None - Past Medical History Past Medical History: No Previous - Cardiac Hx Cardiac Disorders: No - Pulmonary Hx Respiratory Disorders: No - Neurological Hx Neurological Disorder: No - HEENT Hx HEENT Disorder: No - Renal Hx Renal Disorder: No - Endocrine/Metabolic Hx Endocrine Disorders: No - Hematological/Oncological Hx Blood Disorders: No - Integumentary Hx Dermatological Disorder: No - Musculoskeletal/Rheumatological Hx Musculoskeletal Disorders: No - Gastrointestinal Hx Gastrointestinal Disorders: Yes Hx Crohn's Disease: Yes - Genitourinary/Gynecological Hx Genitourinary Disorders: No - Psychiatric Hx Psychophysiologic Disorder: No Hx Substance Use: Yes (Marijuana) - Past Surgical History Past Surgical History: No Previous - Surgical History Hx Coronary Stent: No - Anesthesia Hx Anesthesia: Yes - Suicidal Assessment Feels Threatened In Home Enviroment: No Family/Social History - Physician Review Nursing Documentation Reviewed: Yes Family/Social History: No Known Family HX Smoking Status: Heavy Smoker > 10 Cigarettes Daily Hx Alcohol Use: Yes Hx Substance Use: Yes (Marijuana) Substance used: MARIJUANA Hx Substance Use Treatment: No Allergies/Home Meds Allergies/Adverse Reactions: Allergies iodine Allergy (Verified 03/31/18 09:32) ANAPHYLAXIS shellfish derived Allergy (Verified 03/31/18 09:32) ANAPHYLAXIS Review of Systems - Physician Review All systems were reviewed & negative as marked: Yes - Review of Systems Constitutional: absent: Fevers Gastrointestinal: Abdominal Pain, Diarrhea, Nausea, Vomiting (2 episodes) Physical Exam - Physical Exam Narrative Physical Exam (Text): Gen: VS reviewed, alert, well developed, well nourished, nontoxic, moderate distress secondary to nausea and abdominal pain. ENT: normal pharynx. Eye: EOMI, PERRL. Neck: no JVD, supple, no adenopathy. CV: regular rate, regular rhythm, no rubs, no murmur, no gallops, S1, S2, pulses equal and strong. Pulm: no distress, clear to auscultation, no wheeze, no rhonchi, breath sounds equal, no rales. Abd: mildly diffuse epigastric tenderness, no guarding, no rebound, no rigidity , normal bowel sounds. Ext: no edema. Skin: diaphoretic, no rash, no cyanosis. Psych: responds appropriately to questions, normal affect. Neuro: oriented x 3, CN2-12 intact grossly, motor intact, sensation intact. Vital Signs Reviewed: Yes Vital Signs Temp Pulse Resp BP Pulse Ox 05/10/18 17:51 98.6 F 60 18 139/78 97 05/10/18 17:16 98.6 F 60 18 139/80 98 05/10/18 15:16 53 L 18 160/90 H 100 05/10/18 11:59 97.4 F L 51 L 18 174/85 H 100 05/10/18 11:40 97.9 F 60 19 98 Temperature: Afebrile Blood Pressure: Hypertensive Pulse: Regular Respiratory Rate: Normal Pain Distress: Moderate (secondary to nausea and abdominal pain) Mental Status: Positive for: Alert and Oriented X 3 Medical Decision Making ED Course and Treatment: 05/10/18 12:10 Impression: 47 year old male with abdominal pain, nausea, diarrhea, and 2 episodes of vomiting. Physical exam shows patient is in moderate distress secondary to nausea and abdominal pain; appears diaphoretic; and has diffusely mild epigastric tenderness with no guarding/rebound/rigidity. Plan: -- EKG -- Labs -- Urinalysis -- Bentyl -- Toradol -- Reglan -- IV Fluids -- Reassess and disposition Prior Visits: Notes and results from previous visits were reviewed. Patient was last seen in the emergency department on 03/31/2018 for crampy epigastric pain and RUQ pain that radiates to his shoulder. Patient was discharged home. Progress Notes: 05/10/18 12:43 EKG: Ordered, reviewed, and independently interpreted the EKG. Rate : 45 BPM Rhythm : Sinus bradycardia Interpretation : Normal QRS, LVH with early repoll. Comparison : No previous EKG for comparison. 05/10/18 22:41 patient was seen for acute vomiting, diarrhea and abdomnial cramping, patient is a known heavy everyday marijuana smoker. prior data/visits have been reviewed by myself and I did not feel it was necessary to repeat CT imaging as the patient was afebrile with unremarkable labs, and nonsurgical abdominal exam. patient was encouraged to stop smoking marijuana and to follow up with pcp and evenual GI referral. Furthermore, the patient's symptoms have been chronic. - Lab Interpretations Lab Results: 05/10/18 12:10 05/10/18 12:10 Lab Results 05/10/18 15:30: Urine Opiates Screen Negative, Urine Methadone Screen Negative, Ur Barbiturates Screen Negative, Ur Phencyclidine Scrn Negative, Ur Amphetamines Screen Negative, U Benzodiazepines Scrn Negative, U Oth Cocaine Metabols Negative, U Cannabinoids Screen Positive H 05/10/18 15:30: Urine Color Light yellow, Urine Appearance Cloudy, Urine pH 8.0 , Ur Specific Woodson 1.020, Urine Protein 30 H, Urine Glucose (UA) Negative, Urine Ketones Trace H, Urine Blood Negative, Urine Nitrate Negative, Urine Bilirubin Negative, Urine Urobilinogen 0.2, Ur Leukocyte Esterase Negative, Urine RBC 0 - 2, Urine WBC 1 - 3, Ur Epithelial Cells None, Amorphous Sediment Moderate, Urine Bacteria Large, Urine Other Uyeast 05/10/18 12:10: Sodium 143, Potassium 4.6, Chloride 111 H, Carbon Dioxide 22, Anion Gap 15, BUN 16, Creatinine 1.0, Est GFR ( Amer) > 60, Est GFR (Non- Af Amer) > 60, Random Glucose 107, Calcium 9.6, Magnesium 1.9, Total Bilirubin 0.5, AST 39, ALT 20, Alkaline Phosphatase 69, Total Protein 7.4, Albumin 4.3, Globulin 3.0, Albumin/Globulin Ratio 1.4, Lipase 37 05/10/18 12:10: WBC 5.4 D, RBC 5.18, Hgb 14.0, Hct 41.3 L, MCV 79.7 L, MCH 27.0 , MCHC 33.9, RDW 13.7, Plt Count 268, MPV 8.7, Gran % 48.9 L, Lymph % (Auto) 44.4 H, Lane % (Auto) 3.7, Eos % (Auto) 2.4, Baso % (Auto) 0.6, Gran # 2.64, Lymph # (Auto) 2.4, Lane # (Auto) 0.2, Eos # (Auto) 0.1, Baso # (Auto) 0.03 I have reviewed the lab results: Yes - RAD Interpretation Radiology Orders: 05/10/18 15:51 obstructive [ABD 2 VIEWS (FLAT/UP OR DECUB)] [RAD] Stat - Medication Orders Current Medication Orders: Discontinued Medications Dicyclomine HCl (Bentyl) 10 mg PO STAT STA Stop: 05/10/18 12:12 Last Admin: 05/10/18 12:44 Dose: 10 mg Sodium Chloride (Sodium Chloride 0.9%) 1,000 mls @ 150 mls/hr IV .Q6H40M [facility] Last Admin: 05/10/18 12:44 Dose: 150 mls/hr eMAR Start Stop Document 05/10/18 12:44 (Rec: 05/10/18 12:44 [id number] Intravenous Solution Start Date 05/10/18 Start Time 12:44 Ketorolac Tromethamine (Toradol) 30 mg IVP STAT STA Stop: 05/10/18 12:12 Last Admin: 05/10/18 12:44 Dose: 30 mg MAR Pain Assessment Document 05/10/18 12:44 (Rec: 05/10/18 12:44 [id number][facility] Pain Reassessment Is this a pain reassessment? No Sleep Is patient sleeping during reassessment? No Presence of Pain Presence of Pain Yes IVP Administration Document 05/10/18 12:44 (Rec: 05/10/18 12:44 [id number]) Charges for Administration # of IVP Administrations 1 Metoclopramide HCl (Reglan) 10 mg IVP STAT STA Stop: 05/10/18 12:12 Last Admin: 05/10/18 12:43 Dose: 10 mg IVP Administration Document 05/10/18 12:43 (Rec: 05/10/18 12:44 [id number]) Charges for Administration # of IVP Administrations 1 Morphine Sulfate (Morphine) 2 mg IVP STAT STA Stop: 05/10/18 15:00 Last Admin: 05/10/18 15:16 Dose: 2 mg MAR Pain Assessment Document 05/10/18 15:16 (Rec: 05/10/18 15:17 [id number]) Pain Reassessment Is this a pain reassessment? Yes Sleep Is patient sleeping during reassessment? No Presence of Pain Presence of Pain Yes Pain Scale Used Pain Scale Used Numeric IVP Administration Document 05/10/18 15:16 SH (Rec: 05/10/18 15:17 [id number]) Charges for Administration # of IVP Administrations 1 Ondansetron HCl (Zofran Inj) 4 mg IVP STAT STA Stop: 05/10/18 15:00 Last Admin: 05/10/18 15:16 Dose: 4 mg IVP Administration Document 05/10/18 15:16 (Rec: 05/10/18 15:16 [id number]) Charges for Administration # of IVP Administrations 1 - Scribe Statement The provider has reviewed the documentation as recorded by the Cassius Toth Provider Scribe Attestation: All medical record entries made by the Radhaibnatalia were at my direction and personally dictated by me. I have reviewed the chart and agree that the record accurately reflects my personal performance of the history, physical exam, medical decision making, and the department course for this patient. I have also personally directed, reviewed, and agree with the discharge instructions and disposition. Disposition/Present on Arrival - Present on Arrival Any Indicators Present on Arrival: No History of DVT/PE: No History of Uncontrolled Diabetes: No Urinary Catheter: No History Surgical Site Infection Following: None - Disposition Have Diagnosis and Disposition been Completed?: Yes Diagnosis: Vomiting, Diarrhea Disposition: HOME/ ROUTINE Disposition Time: 17:09 Patient Plan: Discharge Condition: STABLE Discharge Instructions (ExitCare): Diarrhea in Adolescents and Adults, Nausea and Vomiting, Adult (DC), Marijuana Use and Addiction Print Language: THAI Additional Instructions: Return for any new or worsening symptoms. Follow up with a primary care doctor. You should strongly consider stop smoking marijuana. GUILLAUME CHAPMAN, thank you for letting us take care of you today. Your provider was Dr. Emile Bustamante and you were treated for vomiting, diarreha, abdominal pain. The emergency medical care you received today was directed at your acute symptoms. If you were prescribed any medication, please fill it and take as directed. It may take several days for your symptoms to resolve. Return to the Emergency Department if your symptoms worsen, do not improve, or if you have any other problems. Please contact your doctor or call one of the physicians/clinics you have been referred to that are listed on the Patient Visit Information form that is included in your discharge packet. Bring any paperwork you were given at discharge with you along with any medications you are taking to your follow up visit. Our treatment cannot replace ongoing medical care by a primary care provider outside of the emergency department. Thank you for allowing the [facility] team to be part of your care today. If you had an X-Ray or CT scan: A Radiologist will review the ED reading if any change in treatment is needed we will contact you. If you had a blood, urine, or wound culture: It will take several days for the results, if any change in treatment is needed we will contact you. If you had an STI test: It will take 48 hours for the results. Please call after 1 week if you have not heard back. Prescriptions: Dicyclomine [Dicyclomine HCl] 10 mg PO TID #12 cap Ondansetron [Zofran] 4 mg PO Q8H #12 tab Referrals: [facility] [Outside] - Follow up with primary Sosa Turcios MD [Medical Doctor] - Follow up with primary Forms: [employer] (Turkmen), WORK NOTE
[2018-05-10 12:14] VITALS: RESP 18; BMI 23.0
[2018-05-10] MEDS ORDERED: Sodium Chloride 0.9% 1,000 ML IV SCH (12:15)
[2018-05-10 12:50] LABS: BASO # 0.03 K/mm3 (0.0-2.0); BASO % 0.6 % (0.0-3.0); EOS # 0.1 (0.0-0.7); EOS % 2.4 % (1.5-5.0); GRAN # 2.64 (1.4-6.5); GRAN % 48.9 % (50.0-68.0); LYMPH # 2.4 (1.2-3.4); LYMPH % 44.4 % (22.0-35.0); MEAN CELL VOLUME 79.7 fl (80.0-105.0); MEAN CORPUSCULAR HGB CONC 33.9 g/dl (31.0-37.0); MEAN PLATELET VOLUME 8.7 fl (7.0-11.0); MONO # 0.2 (0.1-0.6); MONO % 3.7 % (1.0-6.0); RBC 5.18 10^6/uL (3.5-6.1); RED CELL DISTRIBUTION WIDTH 13.7 % (11.5-14.5); WHITE BLOOD COUNT 5.4 10^3/ul (4.5-11.0)
[2018-05-10] MEDS ORDERED: Morphine 2 mg/ml ISec IVP STA (14:59)
[2018-05-10 15:16] LABS: ALB/GLOB RATIO 1.4 (1.1-1.8); ALBUMIN 4.3 g/dL (3.0-4.8); ALT/SGPT 20 U/L (7-56); AST/SGOT 39 U/L (17-59); BLOOD UREA NITROGEN 16 mg/dL (7-21); CALCIUM 9.6 mg/dL (8.4-10.5); GFR NON-AFRICAN AMERICAN > 60; LIPASE 37 U/L (23-300)
[2018-05-10 16:08] LABS: URINE BILIRUBIN NEGATIVE (NEGATIVE); URINE BLOOD NEGATIVE (NEGATIVE); URINE GLUCOSE (UA) NEGATIVE (NEGATIVE); URINE LEUKOCYTE ESTERASE NEGATIVE Leu/uL (NEGATIVE); URINE PROTEIN 30 mg/dL (<30 mg/dL); URINE UROBILINOGEN 0.2 E.U./dL (<1 E.U./dL)
[2018-05-10 16:12] LABS: URINE APPEARANCE CLOUDY (CLEAR); URINE COLOR LIGHT YELLOW (YELLOW)
[2018-05-10 16:16] LABS: URINE RBC 0 - 2 /hpf (0-2)
[2018-05-10 16:17] LABS: URINE BACTERIA LARGE (NEG)
[2018-05-10 16:18] LABS: URINE AMORPHOUS SEDIMENT MODERATE
[2018-05-10 16:37] LABS: BARBITURATES, UR NEGATIVE (NEGATIVE); BENZODIAZEPINES, UR NEGATIVE (NEGATIVE); OPIATES, UR NEGATIVE (NEGATIVE); PHENCYCLIDINE, UR NEGATIVE (NEGATIVE)
--- NOTE | 2018-05-10 17:01 | RAD ---
Date of service: 05/10/2018 HISTORY: pain, vomiting COMPARISON: CT scan of the abdomen pelvis dated 02/18/2018 FINDINGS: BOWEL: Nonspecific bowel gas pattern. BONES: Normal. OTHER FINDINGS: None. IMPRESSION: Nonspecific bowel gas pattern.
[2018-05-10 17:18] VITALS: PULSE 60; TEMP 98.6
[2018-05-10 17:52] VITALS: BP 139/78; O2SAT 97
--- NOTE | 2018-05-11 05:10 | CARD ---
APPROVED REPORT Date of service: 05/10/2018 EKG Measurement Heart [id number] <Conclusion> Marked sinus bradycardia Abnormal ECG
== END 2018-05-10 17:35 | disposition home or self-care (01) ==
LOC: ED 11:38
DX: R11.10 Vomiting, unspecified (principal); R19.7 Diarrhea, unspecified; F17.210 Nicotine dependence, cigarettes, uncomplicated
CPT/HCPCS: 74019; 80053; 81001; 83690; 83735; 85025; 93005; 96374; 96375; 99283; G0480; J1885; J2270; J2405; J2765; J7030

== ENCOUNTER 2018-10-01 11:30 | Emergency (ER) | payer MEDICAID ==
[2018-10-01 11:30] VITALS: BMI 23.0
[2018-10-01] MEDS ORDERED: Famotidine 20mg/50ml 20 MG in Premixed IV 50 EA IVPB STA (12:13)
[2018-10-01] MEDS ORDERED: Sodium Chloride 0.9% 1,000 ML IV SCH (12:15)
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
[2018-10-01 12:29] VITALS: RESP 18
[2018-10-01 12:32] LABS: BASO # 0.03 K/mm3 (0.0-2.0); BASO % 0.5 % (0.0-3.0); EOS # 0.1 (0.0-0.7); GRAN # 2.83 (1.4-6.5); GRAN % 46.3 % (50.0-68.0); HEMOGLOBIN 14.1 g/dL (14.0-18.0); LYMPH # 2.8 (1.2-3.4); MEAN CELL VOLUME 81.9 fl (80.0-105.0); MEAN CORPUSCULAR HEMOGLOBIN 27.2 pg (25.0-35.0); MEAN CORPUSCULAR HGB CONC 33.2 g/dl (31.0-37.0); MEAN PLATELET VOLUME 8.8 fl (7.0-11.0); MONO # 0.3 (0.1-0.6); MONO % 5.2 % (1.0-6.0); RBC 5.19 10^6/uL (3.5-6.1); RED CELL DISTRIBUTION WIDTH 13.9 % (11.5-14.5); WHITE BLOOD COUNT 6.1 10^3/uL (4.5-11.0)
[2018-10-01 12:48] LABS: ALB/GLOB RATIO 1.4 (1.1-1.8); ALBUMIN 4.4 g/dL (3.0-4.8); ALT/SGPT 26 U/L (7-56); AST/SGOT 26 U/L (17-59); BLOOD UREA NITROGEN 17 mg/dL (7-21); CALCIUM 9.7 mg/dL (8.4-10.5); GFR NON-AFRICAN AMERICAN > 60; LIPASE 59 U/L (23-300)
[2018-10-01 14:28] VITALS: BP 110/68; PULSE 61; TEMP 97.7; O2SAT 99
--- NOTE | 2018-10-01 20:16 | CARD ---
APPROVED REPORT Date of service: 10/01/2018 EKG Measurement Heart [id number] <Conclusion> Marked sinus bradycardia Abnormal ECG
== END 2018-10-01 14:50 | disposition home or self-care (01) ==
LOC: ED 11:30
DX: R11.10 Vomiting, unspecified (principal); R19.7 Diarrhea, unspecified; K50.90 Crohn's disease, unspecified, without complications
CPT/HCPCS: 80053; 83690; 85025; 93005; 96365; 96375; 99284; J1885; J2765; J7030

== ENCOUNTER 2018-10-06 05:32 | Emergency (ER) | payer MEDICAID ==
[2018-10-06 05:41] VITALS: BMI 21.7
[2018-10-06 05:46] VITALS: RESP 18; TEMP 98.2
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
[2018-10-06] MEDS ORDERED: TDAP Vaccine 0.5 mL Syr IM ONE (05:52)
[2018-10-06] MEDS ORDERED: Lidocaine PF 2% (5 ml) Inj (For Cardiac Arrhy) ONE (06:09)
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
[2018-10-06 08:15] VITALS: BP 106/95; PULSE 93; O2SAT 94
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
== END 2018-10-06 08:16 | disposition home or self-care (01) ==
LOC: ED 05:32
DX: S01.81XA Laceration without foreign body of other part of head, initial encounter (principal); Y04.0XXA Assault by unarmed brawl or fight, initial encounter; F17.210 Nicotine dependence, cigarettes, uncomplicated; Z23 Encounter for immunization

== ENCOUNTER 2018-10-16 10:38 | Emergency (ER) | payer MEDICAID ==
[2018-10-16 10:39] VITALS: BMI 21.7
[2018-10-16 11:01] VITALS: BP 142/90; PULSE 80; RESP 18; TEMP 98.2; O2SAT 99
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
== END 2018-10-16 11:21 | disposition home or self-care (01) ==
LOC: ED 10:38
DX: Z48.02 Encounter for removal of sutures (principal); F17.210 Nicotine dependence, cigarettes, uncomplicated